=== PATIENT | male | born 1965 | race Caucasian/White ===

== ENCOUNTER → 2018-11-04 | Emergency (ER) | payer OTHER ==
[~2018-11-04] VITALS: Ht 180.3 cm; Wt 102.1 kg
[~2018-11-04] MED LIST: ALTACE5 MG; KETO10TA2 PO; SKELAXIN800 MG PO; TIZANIDINE HCL4 M1; VITACEL
== END | disposition home or self-care (01) ==
LOC: ER 21:12
DX: M25.462 Effusion, left knee (principal); M25.562 Pain in left knee

== ENCOUNTER → 2022-01-04 | Emergency (ER) | payer OTHER ==
[~2022-01-04] VITALS: Ht 180.3 cm; Wt 102.1 kg
[~2022-01-04] MED LIST changes: +GLIMEPIRIDE2 M1 PO; +RAMIPRIL5 MG PO
== END | disposition home or self-care (01) ==
LOC: ER 10:12
DX: S82.61XA Displaced fracture of lateral malleolus of right fibula, initial encounter for closed fracture (principal); W19.XXXA Unspecified fall, initial encounter; Y93.9 Activity, unspecified; Y92.9 Unspecified place or not applicable; I10 Essential (primary) hypertension; E11.9 Type 2 diabetes mellitus without complications; Z79.84 Long term (current) use of oral hypoglycemic drugs

== ENCOUNTER 2023-02-08 09:46 | Outpatient (CLI) | payer OTHER | END 2023-02-08 09:55 | disposition home or self-care (01) | LOC: TOM 09:46 | PROVIDERS: ATTEND Otolaryngology Otology & Neurotology | DX: H61.322 Acquired stenosis of left external ear canal secondary to inflammation and infection (principal) ==

== ENCOUNTER 2023-04-22 06:46 | Day surgery (SDC) | payer OTHER ==
[2023-04-14 08:24] LABS: URINE APPEARANCE Clear; URINE BILIRRUBIN Negative (NEGATIVE); URINE BLOOD Negative; URINE COLOR Yellow; URINE GLUCOSE Negative (NEGATIVE); URINE LEUKOCYTE Negative; URINE NITRATE Negative; URINE PROTEIN Negative (NEGATIVE); URINE UROBILINOGEN 0.2 E.U./dl
[2023-04-14 08:32] LABS: URINE BACTERIA 1.2 uL (0.0-1933); URINE EPITHELIAL CELLS 0.3 uL (0.0-38.8); URINE RBC 1.4 uL (0.0-20.8); URINE WBC 0.7 uL (0.0-23.2)
[2023-04-14 08:33] LABS: HEMATOCRIT 45.5 % (39.0-48.0); HEMOGLOBIN 15.7 g/dL (13-16.00); MEAN CORPUSCULAR HEMOGLOBIN 34.6 pg (27.00-32.0); MEAN CORPUSCULAR HGB CONC 34.6 g/dl (32.0-36.0); PLATELET COUNT 197 K/uL (150-450); RED BLOOD COUNT 4.55 M/uL (4.00-6.00); RED CELL DISTRIBUTION WIDTH 12.6 % (11.5-14.5)
[2023-04-14 08:53] LABS: INR 1.03; PARTIAL THROMBOPLASTIN TIME 29.1 SECONDS (22.0-34.0); PROTHROMBIN TIME 10.8 SECONDS (9.0-11.5)
[2023-04-14 09:17] LABS: ALBUMIN 3.7 gm/dL (3.4-5.0); BILIRUBIN TOTAL 0.59 mg/dL (0.3-1.2); CALCIUM 8.9 mg/dL (8.5-10.1); CREATININE SERUM 1.11 mg/dL (0.70-1.30); GFR 68.28; GLOBULINA 3.6 G/DL (2.4-3.5); POTASSIUM 4.62 mEq/L (3.5-5.1); TOTAL PROTEIN 7.3 gm/dL (6.4-8.2)
[~2023-04-22 06:46] MED LIST changes: +METFORMIN HCL500 M3 PO
[2023-04-22] MEDS ORDERED: CIPROFLOXACIN2.5 ML OTIC (13:34)
[2023-04-22] MEDS ORDERED: CEPHALEXIN500 MG PO (13:34)
== END 2023-04-22 16:35 | disposition home or self-care (01) ==
LOC: CIR.AMB 06:46
PROVIDERS: ATTEND Otolaryngology Otology & Neurotology
DX: H71.22 Cholesteatoma of mastoid, left ear (principal); H72.12 Attic perforation of tympanic membrane, left ear; Z20.822 Contact with and (suspected) exposure to COVID-19; E11.9 Type 2 diabetes mellitus without complications; I10 Essential (primary) hypertension